=== PATIENT | female | born 1995 | race Caucasian/White ===

== ENCOUNTER → 2020-01-29 | Outpatient (CLI) | payer OTHER | END | disposition home or self-care (01) | LOC: LABWHC1 10:49 | PROVIDERS: ATTEND Surgery | DX: Z11.59 Encounter for screening for other viral diseases (principal) | CPT/HCPCS: 87635 ==

== ENCOUNTER 2020-02-01 09:58 | Day surgery (SDC) | payer OTHER ==
[2020-01-29 11:53] VITALS: BMI 46.0
[~2020-02-01 09:58] MED LIST: LACTATED RINGERS 1,000 ML IV SCH
[2020-02-01 10:43] VITALS: RESP 16; TEMP 98.2
[2020-02-01] MEDS ORDERED: LIDOCAINE 1% INJ 10MG/ML (20 ML MDV) ONE (11:05)
[2020-02-01] MEDS ORDERED: PROPOFOL 10 MG/ML 20 ML VIAL IV ONE (11:05)
--- NOTE | 2020-02-01 11:10 | P.GSHP ---
History of Present Illness H&P Date: 02/01/20 Chief Complaint: Epigastric pain The 24-year-old female and presents today for EGD. She's had complaints of epigastric pain. Past Medical History Past Medical History: GERD/Reflux History of Any Multi-Drug Resistant Organisms: None Reported Additional Past Surgical History / Comment(s): WISDOM TEETH REMOVED UNDER ANESTHESIA Past Anesthesia/Blood Transfusion Reactions: No Reported Reaction Smoking Status: Never smoker - Past Family History Mother Family Medical History: No Reported History Medications and Allergies Home Medications Medication Instructions Recorded Confirmed Type Fluticasone Nasal [place] [Flonase 1 spray EA NOSTRIL DAILY 01/29/20 02/01/20 History Nasal [place]] Loratadine [Claritin] 10 mg PO DAILY 01/29/20 02/01/20 History Norethindrone-E.estradiol-Iron 1 each PO DAILY 01/29/20 02/01/20 History [Junel Fe 24 Tablet] Omeprazole 20 mg PO DAILY 01/29/20 02/01/20 History Allergies Allergy/AdvReac Type Severity Reaction Status Date / Time No Known Allergies Allergy Verified 02/01/20 10:25 Surgical - Exam Vital Signs Temp Pulse Resp BP Pulse Ox 98.2 F 119 H 16 191/102 96 02/01/20 10:41 02/01/20 10:41 02/01/20 10:41 02/01/20 10:41 02/01/20 10:41 - General well developed, well nourished, no distress - Eyes PERRL - ENT normal pinna - Neck no masses - Respiratory normal expansion - Cardiovascular Rhythm: regular - Abdomen Abdomen: soft, non tender Assessment and Plan Assessment: Epigastric pain. We'll perform EGD.
--- NOTE | 2020-02-01 11:18 | P.OP ---
Date of Procedure: 02/01/20 Preoperative Diagnosis: GERD Postoperative Diagnosis: Antral gastritis Small hiatal hernia Mild esophagitis Procedure(s) Performed: EGD Anesthesia: MAC Surgeon: Michael Schmidt Pathology: other (Antrum, esophagus) Condition: stable Disposition: PACU Description of Procedure: The patient's placed on the endoscopy table in the lateral position. She received IV sedation. The gastroscope placed oropharynx and passed in the esophagus and stomach. Scope was placed through the pylorus. The first and se cond portion of the duodenum appeared normal. Scope summer back the antrum was mildly inflamed. A biopsies performed. The scope was then retroflexed and remainder stomach appeared normal. There was a small hiatal hernia. The GE junction was at 38 cm the distal esophagus appeared mildly inflamed a biopsies performed. The proximal esophagus appeared normal. Scope was withdrawn for patient.
[2020-02-01 11:45] VITALS: BP 158/70; PULSE 106
== END 2020-02-01 12:19 | disposition home or self-care (01) ==
LOC: ORWHC2ENDO 09:58
PROVIDERS: ATTEND Surgery
DX: K29.50 Unspecified chronic gastritis without bleeding (principal); K21.0 Gastro-esophageal reflux disease with esophagitis; K44.9 Diaphragmatic hernia without obstruction or gangrene; E66.9 Obesity, unspecified; Z79.3 Long term (current) use of hormonal contraceptives; Z79.899 Other long term (current) drug therapy; Z98.818 Other dental procedure status; Z68.42 Body mass index [BMI] 45.0-49.9, adult
CPT/HCPCS: 43239; J2001; J2704; 81025; 88305

== ENCOUNTER → 2020-08-04 | Outpatient (CLI) | payer OTHER ==
--- NOTE | 2020-08-04 11:24 | NM ---
EXAMINATION TYPE: NM hepatobiliary w CCK DATE OF EXAM: 08/04/2020 COMPARISON: NONE HISTORY: Chronic cholecystitis TECHNIQUE: After the intravenous administration of 4.28 mCi Tc 99m Mebrofenin hepatobiliary scintigra phy is performed. Immediate images post injection. FINDINGS: There is satisfactory initial accumulation of tracer by the liver. The gallbladder is visualized wit hin 4 minutes. The small bowel activity is noted within 90 minutes. At one hour CCK was administere d, patient was injected with 2.7 mcg of Kinevac, and gallbladder ejection fraction is calculated at 9 7 %, above the upper limit of the normal range. Therefore there is no scintigraphic evidence of cyst ic or common bile duct obstruction to suggest acute cholecystitis or gallbladder dyskinesia. IMPRESSION: Findings could represent hyperdynamic gallbladder
== END | disposition home or self-care (01) ==
LOC: RADNMMAIN 06:42
PROVIDERS: ATTEND Surgery
DX: K81.1 Chronic cholecystitis (principal)
CPT/HCPCS: 78227; A9537; J2805

== ENCOUNTER 2020-08-16 07:28 | Day surgery (SDC) | payer OTHER ==
[2020-08-10 11:07] VITALS: BMI 45.6
[~2020-08-16 07:28] MED LIST changes: +ACETAMINOPHEN TAB 500 MG TAB PO PRN; +DEXAMETHASONE SOD PHOSPHATE 4 MG/ML 1 ML VIAL IV ONE; +HEPARIN SODIUM,PORCINE 5,000 UNIT/ML 1 ML VIAL SQ PRN; +HYDROmorphone 0.5 MG/0.5 ML SYRINGE IVP PRN; +LIDOCAINE 1% (10MG/ML) FOR IV START INTRADERMA PRN; +MIDAZOLAM 2 MG/2 ML VIAL IV PRN; +ONDANSETRON 4 MG/2 ML VIAL IVP ONE; +ceFAZolin 3 GM in SODIUM CHLORIDE 0.9% 100 ML IVPB PRN
[2020-08-16 08:27] LABS: Glucose,Whole Blood 96 mg/dL (75-99)
--- NOTE | 2020-08-16 08:38 | P.GSHP ---
History of Present Illness H&P Date: 08/16/20 Chief Complaint: Right upper quadrant pain This a 25-year-old female who presents today for laparoscopic cholecystectomy. Patient has had complete pain. Her recent HIDA scan shows evidence of a hyperdynamic gallbladder. Past Medical History Past Medical History: Diabetes Mellitus, GERD/Reflux, Sleep Apnea/CPAP/BIPAP Additional Past Medical History / Comment(s): hiatal hernia, "insulin resistance", eczema, PCOS History of Any Multi-Drug Resistant Organisms: None Reported Additional Past Surgical History / Comment(s): EGD, wisdom teeth Past Anesthesia/Blood Transfusion Reactions: No Reported Reaction Smoking Status: Never smoker - Past Family History Mother Family Medical History: No Reported History Medications and Allergies Home Medications Medication Instructions Recorded Confirmed Type Fluticasone Nasal [place] [Flonase 1 spray EA NOSTRIL DAILY PRN 01/29/20 08/16/20 History Nasal [place]] Loratadine [Claritin] 10 mg PO DAILY 01/29/20 08/16/20 History Omeprazole 20 mg PO DAILY 01/29/20 08/16/20 History Dian Control 1 tab PO DAILY 06/06/20 08/16/20 History [id number] 1 each PO DIRECTED PRN 08/10/20 08/16/20 History [Excedrin] metFORMIN HCL [metFORMIN HCL ER] 500 mg PO BID 08/10/20 08/16/20 History Allergies Allergy/AdvReac Type Severity Reaction Status Date / Time No Known Allergies Allergy Verified 08/16/20 08:18 Surgical - Exam Vital Signs Temp Pulse Resp BP Pulse Ox 98.7 F 103 H 18 179/84 97 08/16/20 08:07 08/16/20 08:07 08/16/20 08:07 08/16/20 08:07 08/16/20 08:07 - General well developed, well nourished, no distress - Eyes PERRL - ENT normal pinna - Neck no masses - Respiratory normal expansion - Cardiovascular Rhythm: regular - Abdomen Abdomen: soft, non tender Assessment and Plan Assessment: Right upper quadrant pain Chronic cholecystitis We'll perform laparoscopic cholecystectomy
[2020-08-16] MEDS ORDERED: SUCCINYLCHOLINE CHLORIDE VIAL 200 MG/10 ML VIAL IV ONE (08:52)
[2020-08-16] MEDS ORDERED: PROPOFOL 10 MG/ML 20 ML VIAL IV ONE (08:52)
[2020-08-16] MEDS ORDERED: MIDAZOLAM 2 MG/2 ML VIAL ONE (08:52)
[2020-08-16] MEDS ORDERED: fentaNYL (PF) 50 MCG/ML 2 ML AMP ONE (08:52)
[2020-08-16] MEDS ORDERED: LIDOCAINE 1% INJ 10MG/ML (20 ML MDV) ONE (08:52)
[2020-08-16] MEDS ORDERED: GLYCOPYRROLATE 0.2 MG/ML 2 ML VIAL ONE (08:52)
[2020-08-16] MEDS ORDERED: NEOSTIGMINE 1 MG/ML 10 ML VIAL ONE (08:52)
[2020-08-16] MEDS ORDERED: KETOROLAC 15 MG/ML 1 ML VIAL ONE (08:52)
[2020-08-16] MEDS ORDERED: ROCURONIUM 10 MG/ML (10 ML VIAL) IV ONE (08:52)
[2020-08-16] MEDS ORDERED: BUPIVACAINE (PF) 0.25% 30 ML VIAL SQ ONE (09:23)
--- NOTE | 2020-08-16 09:47 | P.OP ---
Date of Procedure: 08/16/20 Preoperative Diagnosis: Chronic cholecystitis Postoperative Diagnosis: Chronic cholecystitis Procedure(s) Performed: Laparoscopic cholecystectomy Anesthesia: MARIE Surgeon: Michael Schmidt Estimated Blood Loss (ml): 5 Pathology: other Condition: stable Description of Procedure: The patient was placed on the operating table. The patient received a general endotracheal tube anesthesia. The patients abdomen was prepped and draped in the usual sterile fashion. Through an infraumbilical stab incision, the fascia of the anterior abdominal wall was grasped with a pair of Kochers and then the Veress needle was placed in the peritoneal cavity. Position of the Veress needle was confirmed with positive drop test. The abdomen was then insufflated. After adequate insufflation, the 10 mm trocar was placed in the peritoneal cavity. Following this the laparoscope was placed in the perito sada cavity. The patient was placed in the head-up, right side up position and then a 5 mm trocar was placed in the right lateral and right subcostal position under direct visualization. A 8 mm trocar was placed in the epigastric position. The gallbladder was grasped in the fundus and infundibulum. Traction on the gallbladder was placed in the lateral and the cephalad positions. The triangle of Calot was visualized.. The cystic duct was bluntly dissected until the union of the cystic duct and common bile duct was seen. A critical view of safety was achieved. The cystic duct was then divided and sealed with the Harmonic scissors. A PDS Endoloop was then placed throughout the cystic duct stump. The cystic artery divided and sealed with the Harmonic scissors. The gallbladder was then removed from the liver bed using Harmonic scissors. The gallbladder was then extracted through the epigastric port site. Operative field was checked for any bleeding spots and Harmonic scissors was used to coagulate the liver bed. The abdomen was irrigated. The trocars were removed. The skin was closed using interrupted 3-0 Vicryl suture. Dermabond dressing were applied. The patient tolerated the procedure well.
[2020-08-16 09:50] VITALS: TEMP 97.8
[2020-08-16 09:58] LABS: Glucose,Whole Blood 107 mg/dL (75-99)
[2020-08-16 10:36] VITALS: RESP 18
[2020-08-16] MEDS ORDERED: IBUPROFEN 200 MG TAB PO ONE (10:52)
[2020-08-16 11:30] VITALS: BP 142/85; PULSE 93
== END 2020-08-16 11:32 | disposition home or self-care (01) ==
LOC: OR 07:28
PROVIDERS: ATTEND Surgery
DX: K81.1 Chronic cholecystitis (principal); E11.9 Type 2 diabetes mellitus without complications; K21.9 Gastro-esophageal reflux disease without esophagitis; G47.30 Sleep apnea, unspecified; K44.9 Diaphragmatic hernia without obstruction or gangrene; E88.81 Metabolic syndrome and other insulin resistance; L30.9 Dermatitis, unspecified; E28.2 Polycystic ovarian syndrome; Z99.89 Dependence on other enabling machines and devices; Z98.890 Other specified postprocedural states; Z79.899 Other long term (current) drug therapy; Z79.3 Long term (current) use of hormonal contraceptives; Z79.84 Long term (current) use of oral hypoglycemic drugs
CPT/HCPCS: 81025; 88304; 47562; J2250; J0330; J1644; J1100; J2710; J0690; J2405; J2001; J3010; J1885; J2704

== ENCOUNTER → 2021-02-17 | Day surgery (SDC) | payer OTHER ==
[2021-02-15 13:50] VITALS: BMI 44.8
[~2021-02-17] MED LIST changes: -ACETAMINOPHEN TAB 500 MG TAB PO PRN; -DEXAMETHASONE SOD PHOSPHATE 4 MG/ML 1 ML VIAL IV ONE; -HEPARIN SODIUM,PORCINE 5,000 UNIT/ML 1 ML VIAL SQ PRN; -HYDROmorphone 0.5 MG/0.5 ML SYRINGE IVP PRN; +LIDOCAINE 1% (10MG/ML) FOR IV START INTRADERMA ONE; -LIDOCAINE 1% (10MG/ML) FOR IV START INTRADERMA PRN; +LIDOCAINE 1% INJ 10MG/ML (20 ML MDV) ONE; -MIDAZOLAM 2 MG/2 ML VIAL IV PRN; -ONDANSETRON 4 MG/2 ML VIAL IVP ONE; +PROPOFOL 10 MG/ML 20 ML VIAL IV ONE; -ceFAZolin 3 GM in SODIUM CHLORIDE 0.9% 100 ML IVPB PRN
[2021-02-17 07:19] VITALS: RESP 16; TEMP 97.1
--- NOTE | 2021-02-17 08:12 | P.PCN ---
Date of Procedure: 02/17/21 Procedure(s) Performed: BRIEF HISTORY: Patient is a 25-year-old, pleasant, white female scheduled for an upper endoscopy as a part of evaluation of GERD, heartburn and persistent nausea for the last several months duration. She was started on Prilosec 40 mg daily and symptoms are gradually improving. However she continues to have nausea almost certainly daily basis. Recently has been taking Zofran as needed and feeling better.. PROCEDURE PERFORMED: Esophagogastroduodenoscopy with biopsy. PREOPERATIVE DIAGNOSIS: GERD/epigastric pain and persistent nausea of several months duration. IV sedation per anesthesia. PROCEDURE: After informed consent was obtained, the patient was brought into the endoscopy unit. IV sedation was administered by Anesthesia under continuous monitoring. Initially the Olympus GIF-140 video endoscope was inserted into the mouth. Esophagus intubated without any difficulty. It was gradually advanced into the stomach and duodenum and carefully examined. The bulb and the second part of the duodenum appeared normal. Abscesses were done from the duodenum to rule out celiac disease. The scope at this time was withdrawn to the stomach, adequately insufflated with air, and upon careful examination, mucosa of the antrum, had mild diffuse gastritis and biopsies were done from this area. The body, cardia and the fundus appeared normal. The scope was then withdrawn into the esophagus. The GE junction was located at 39 cm from the incisors. Small sliding type hiatal hernia noted. The esophagus appeared normal. There were no erosions or ulcerations seen , biopsies were done from the distal esophagus and the patient tolerated the procedure well. IMPRESSION: 1. Mild antral gastritis. 2. Small hiatal hernia but no evidence of esophagitis. RECOMMENDATIONS: The findings of this examination were discussed with the patient as well as her family. She was advised to follow with the biopsy results. In the meantime she will continue with omeprazole 40 mg daily and Zofran as needed and she'll be seen in office in 2-3 weeks..
[2021-02-17 08:29] VITALS: BP 132/86; PULSE 98
== END ==
LOC: ORWHC2ENDO 06:51
PROVIDERS: ATTEND Internal Medicine Gastroenterology
DX: K21.9 Gastro-esophageal reflux disease without esophagitis (principal); K29.50 Unspecified chronic gastritis without bleeding; K44.9 Diaphragmatic hernia without obstruction or gangrene; E11.9 Type 2 diabetes mellitus without complications; E66.01 Morbid (severe) obesity due to excess calories; Z79.84 Long term (current) use of oral hypoglycemic drugs; Z79.899 Other long term (current) drug therapy; Z79.82 Long term (current) use of aspirin; Z88.8 Allergy status to other drugs, medicaments and biological substances
CPT/HCPCS: 81025; 88305; 43239; J2001; J2704

== ENCOUNTER → 2021-04-10 | Outpatient (CLI) | payer MEDICAID ==
--- NOTE | 2021-04-10 14:03 | NM ---
EXAMINATION TYPE: NM gastric emptying static DATE OF EXAM: 04/10/2021 COMPARISON: NONE HISTORY: 25-year-old female R11 .2, nausea and vomiting. Technique: Following administration of 2.0 mCi Tc 99m Sulfur Colloid with 2 Eggs & 6 ounces of water, anterior and posterior projection images of the abdomen were obtained 10 minutes post ingestion. FINDINGS: Patient Emptying Values 1 Hour 51 % (70-10%) 2 Hours 88 % (> 40%) 3 Hours 96 % (> 70%) 4 Hours 100 % (> 90%) Gastroesophageal reflux: None IMPRESSION: Normal gastric emptying. No scintigraphic evidence for gastroparesis.
== END | disposition home or self-care (01) ==
LOC: RADNMMAIN 06:45
PROVIDERS: ATTEND Internal Medicine Gastroenterology
DX: R11.2 Nausea with vomiting, unspecified (principal)
CPT/HCPCS: 78264; A9541

== ENCOUNTER → 2021-07-10 | Outpatient (CLI) | payer MEDICAID ==
--- NOTE | 2021-07-10 17:25 | CT ---
EXAMINATION TYPE: CT abdomen pelvis wo con DATE OF EXAM: 07/10/2021 COMPARISON: None HISTORY: RLQ pain, diarrhea CT DLP: 1547.70 mGycm Automated exposure control for dose reduction was used. Images obtained from the diaphragm to the floor the pelvis with oral contrast only. Lung bases are clear. There is no pleural effusion. Heart size is normal. There is no pericardial eff usion. Liver spleen stomach pancreas appear intact. Bile ducts are nondilated. There are clips from cholecys tectomy. There is no adrenal mass. Kidneys have normal size and contour. There is no hydronephrosis. Ureters a re not dilated. There is no retroperitoneal adenopathy. The appendix appears normal. Bladder distends smoothly. There is no inguinal hernia. Uterus is anteverted. I see no pelvic mass. There is no free fluid in the pelvis. There is no mesenteric edema. There is no ascites or free air. There is no bowel obstruction. Lumbar vertebra have normal spacing and alignment. Posterior elements are intact. There is no juan jerome fracture. The bony pelvis is intact. Hip joints are intact. IMPRESSION: Negative CT scan of the abdomen pelvis. Normal appendix.
== END | disposition home or self-care (01) ==
LOC: RADCTMAIN 14:52
PROVIDERS: ATTEND Physician Assistant
DX: R19.7 Diarrhea, unspecified (principal)
CPT/HCPCS: 74176